=== PATIENT | male | born 1985 | race Caucasian/White ===

== ENCOUNTER 2023-08-25 08:30 | Emergency (ER) | payer OTHER, SELFPAY ==
[2023-08-25 08:42] VITALS: BP 151/106; PULSE 96; RESP 18; TEMP 37.1; O2SAT 98
--- NOTE | 2023-08-25 08:49 | ED.WOUNDLAC ---
HPI - Wound/Laceration General Chief Complaint: Wound/Laceration Stated Complaint: Cut Finger Time Seen by Provider: 08/25/23 08:43 Source: patient and RN notes reviewed Mode of arrival: ambulatory Limitations: no limitations History of Present Illness HPI narrative: Patient presents today with a laceration to his left hand that was sustained at 7:45 a.m. this morning, approximately 1 hour prior to arrival. He fell at home, cutting his hand on his metal dog crate between the 1st and 2nd finger. He is not up-to-date on his tetanus vaccine. Pain is minimal. Denies numbness or tingling. Related Data Home Medications Medication Instructions Recorded Confirmed No Home Medications 08/25/23 08/25/23 Allergies Allergy/AdvReac Type Severity Reaction Status Date / Time No Known Allergies Allergy Mild Verified 08/25/23 08:37 Review of Systems Review of Systems: CONSTITUTIONAL: Denies body aches, fever, chills, or sweats. EYES: Denies visual changes, redness, or discharge. ENT: Denies rhinorrhea, congestion, sore throat, or otalgia. CARDIOVASCULAR: Denies chest pain, palpitations, or edema. RESPIRATORY: Denies cough or dyspnea. GASTROINTESTINAL: Denies abdominal pain, nausea, vomiting, or diarrhea. GENITOURINARY: Denies dysuria or hematuria. SKIN: + left hand laceration MUSCULOSKELETAL: Denies back pain, joint pain, or myalgia. NEUROLOGIC: Denies headache, numbness, tingling, or weakness. PSYCH: Denies depression or anxiety. PMFSH Comments At time of signature, I have reviewed and agree with nursing past medical, surgical, social and family history unless otherwise noted. Please see nursing chart for further information. There is no relevant family history pertinent to the presenting complaint Exam Narrative: GENERAL: Well-appearing, well-nourished, and in no acute distress. HEAD: Normocephalic, atraumatic. EYES: EOMI. No redness or drainage. Conjunctivae normal. ENT: Mucous membranes pink and moist. NECK: Normal AROM. CHEST: No respiratory distress. EXTREMITIES: 1.5 cm full-thickness linear laceration in the webbing between the left 1st and 2nd fingers. No active bleeding. Full range of motion of all fingers. Distal sensation intact. Capillary refill normal. SKIN: Warm, dry, no rash. Capillary refill normal. Normal skin turgor. NEURO: No focal deficits. Alert and oriented x3. Gait steady. PSYCH: Normal affect. No signs of depression or anxiety. Course Course Level of Care: Express Care Visit Vital Signs Vital signs: Vital Signs Temperature 98.8 F 08/25/23 08:42 Pulse Rate 96 08/25/23 08:42 Respiratory Rate 18 08/25/23 08:42 Blood Pressure 151/106 H 08/25/23 08:42 Pulse Oximetry 98 08/25/23 08:42 Oxygen Delivery Room Air 08/25/23 08:42 Temperature 98.8 F 08/25/23 08:42 Pulse Rate 96 08/25/23 08:42 Respiratory Rate 18 08/25/23 08:42 Blood Pressure 151/106 H 08/25/23 08:42 Pulse Oximetry 98 08/25/23 08:42 Oxygen Delivery Room Air 08/25/23 08:42 Reviewed Procedures Laceration Laceration 1: Date: 08/25/23 Time: 09:12 Site: hand Side (If applicable): left Size (cm): 1.5 Description: linear Depth: simple, single layer Local Anesthetic: lidocaine 1% Amount of anesthesia used (mL): 4 Pre-repair: wound explored and irrigated ====== Skin Level ====== Skin layer closed with: nylon Size (cm): 5-0 Number of sutures: 3 Technique: simple, interrupted ====== Subcutaneous Layer ====== ====== Muscle Layer ====== ====== Tendon Layer ====== Dressing: Dressed by RN. Patient tolerated procedure well MDM - Wound/Laceration MDM Narrative Medical decision making narrative: Laceration repaired. Care instructions given. Tetanus shot updated. no prescription medications indicated at this time. Anticipatory guidance given. Differ
[2023-08-25] MEDS: LIDOCAINE HCL 1% LOCAL INJ 2 ML AMPUL 4 ML INFILTRATE (08:58)
[2023-08-25] MEDS: TETANUS,DIPHTHERIA,AC PERTUSSIS ADULT (0.5 ML) BOOSTRIX IM (08:58)
== END 2023-08-25 09:21 | disposition home or self-care (01) ==
PROVIDERS: Emergency Provider Nurse Practitioner
DX: S61.412A Laceration without foreign body of left hand, initial encounter (principal); W45.8XXA Other foreign body or object entering through skin, initial encounter; Z23 Encounter for immunization
CPT/HCPCS: 12002; 90471; 90715; 99202; G0463